=== PATIENT | male | born 1980 | race Caucasian/White ===

== ENCOUNTER 2020-06-21 16:04 | Emergency (ER) | payer MEDICARE ==
[~2020-06-21] VITALS: Ht 188 cm; Wt 95.5 kg
[2020-06-21 16:40] LABS: BASOPHILS % (AUTO) 0.4 % (0-1); EOSINOPHILS % (AUTO) 0.2 % (0-6); HEMOGLOBIN 17.5 g/dl (14.0-17.9); LYMPHOCYTES # (AUTO) 1.4 X10'3 (1.1-4.8); LYMPHOCYTES % (AUTO) 15.5 % (21-51); MEAN CORPUSCULAR HEMOGLOBIN 29.9 PG (27.0-31.0); MEAN CORPUSCULAR HGB CONC 33.6 g/dL (33.0-36.5); MEAN PLATELET VOLUME 7.3 FL (7.4-10.4); MONOCYTES # (AUTO) 0.6 X10'3 (0-0.9); MONOCYTES % (AUTO) 6.6 % (2-12); NEUTROPHILS # (AUTO) 7.1 X10'3 (1.8-7.7); NEUTROPHILS % (AUTO) 77.3 % (42-75); PLATELET COUNT 234 X10'3 (140-440); RED BLOOD COUNT 5.84 X10'6 (4.70-6.10); RED CELL DISTRIBUTION WIDTH 13.1 % (11.5-14.5); WHITE BLOOD COUNT 9.1 X10'3 (4.5-11.0)
[2020-06-21 16:50] LABS: ALANINE AMINOTRANSFERASE 100 U/L (12-78); ALBUMIN 4.4 G/DL (3.4-5.0); ALBUMIN/GLOBULIN RATIO 1.1 (1.1-1.5); ALKALINE PHOSPHATASE 86 IU/L (46-116); ANION GAP 10 (8-16); ASPARTATE AMINO TRANSFERASE 57 U/L (10-37); BILIRUBIN,TOTAL 0.4 MG/DL (0.1-1.0); BLOOD UREA NITROGEN 8 MG/DL (7-18); BUN/CREATININE RATIO 8.9 (5.4-32.0); CALCIUM 9.4 MG/DL (8.5-10.1); CHLORIDE 100 MMOL/L (99-107); GLUCOSE 108 MG/DL (70-104); POTASSIUM 3.5 MMOL/L (3.5-5.1); SODIUM 136 MMOL/L (135-145); TOTAL CARBON DIOXIDE 26.2 MMOL/L (24-32); TOTAL PROTEIN 8.5 G/DL (6.4-8.2); eGFR > 90 ML/MIN
[2020-06-21] MEDS ORDERED: aspirin 81mg tab.chew PO ONE (17:15)
[2020-06-21] MEDS ORDERED: LORazepam 1 MG tablet PO ONE ×2 (17:15→19:00)
[2020-06-21] MEDS ORDERED: LIDOcaine Viscous 15ml cup MM PRN (17:15)
[2020-06-21] MEDS ORDERED: mag hydrox/Alum hydrox/simeth 30ml oral suspension PO ONE (17:15)
--- NOTE | 2020-06-21 18:40 | NUR ---
Pt reports improvement in his symptoms since his arrival and denies any current cp. Current VSS. Reports he was having a lot of anxiety and that [birth year] and states his brother brought him here and will be able to transport for DC (does not live far away). Pt is hopeful of dc soon.
--- NOTE | 2020-06-21 19:28 | NUR ---
dr maharaj talkling with Pt about labs and dc plan. Pt to be given ativan 1 mg po x1 now.
--- NOTE | 2020-06-21 19:58 | NUR ---
AWAITING 3 HR LAB TROPONIN RESULT.
[2020-06-21 20:33] VITALS: BP 147/82
== END 2020-06-21 20:35 | disposition home or self-care (01) ==
LOC: ER 16:05
DX: R07.89 Other chest pain (principal); K20.90 Esophagitis, unspecified without bleeding; F10.10 Alcohol abuse, uncomplicated; Z72.89 Other problems related to lifestyle
CPT/HCPCS: 36415; 71045; 80053; 83880; 84484; 85025; 93005; 99285

== ENCOUNTER 2022-04-24 17:31 | Emergency (ER) | payer MEDICARE ==
[~2022-04-24] VITALS: Ht 188 cm; Wt 100.0 kg
[2022-04-24 17:42] VITALS: BP 164/103
== END 2022-04-24 20:27 | disposition home or self-care (01) ==
LOC: ER 17:32
DX: S61.412A Laceration without foreign body of left hand, initial encounter (principal); W26.0XXA Contact with knife, initial encounter; Y93.89 Activity, other specified; Y92.89 Other specified places as the place of occurrence of the external cause; Y99.8 Other external cause status
CPT/HCPCS: 12001; 99282